=== PATIENT | female | born 1985 | race Caucasian/White ===

== ENCOUNTER → 2022-04-12 | Day surgery (SDC) | payer OTHER ==
[~2022-04-12] VITALS: Ht 157.5 cm; Wt 72.6 kg
[~2022-04-12] MED LIST: ADVIL200 M1 PO; BENADRYL25 MG PO; VITAMIN D21250 MCG PO
[2022-04-12 09:10] LABS: HCG (URINE) SCREEN NEGATIVE (NEGATIVE)
[2022-04-12 09:54] LABS: HCT 41.4 % (37.0-47.0); HGB 13.4 g/dl (12.5-16.0); MCH 27.1 pg (25.0-31.0); MCHC 32.4 g/dL (32.0-36.0); MCV 83.8 fL (78.0-100.0); MPV 11.4 fL (6.0-9.5); RBC 4.94 M/uL (4.20-5.40); RDW 18.5 % (11.5-14.0); WBC 5.6 K/uL (4.0-10.5)
[2022-04-12 10:09] LABS: ALBUMIN 3.6 g/dL (3.4-5.0); BILIRUBIN - TOTAL 1.4 mg/dL (0.2-1.0); BUN/CREAT RATIO (CALC) 7.5 RATIO; CREATININE 0.8 mg/dL (0.51-0.95); GLOBULIN (CALCULATION) 3.3 g/dL; POTASSIUM 3.9 mmol/L (3.5-5.1); TOTAL PROTEIN 6.9 g/dL (6.4-8.2)
== END | disposition home or self-care (01) ==
LOC: FAS 08:30
PROVIDERS: Surgery
DX: K21.00 Gastro-esophageal reflux disease with esophagitis, without bleeding (principal); K29.50 Unspecified chronic gastritis without bleeding; K44.9 Diaphragmatic hernia without obstruction or gangrene; R19.7 Diarrhea, unspecified; D50.0 Iron deficiency anemia secondary to blood loss (chronic); E06.3 Autoimmune thyroiditis; Z20.822 Contact with and (suspected) exposure to COVID-19; Z88.2 Allergy status to sulfonamides
CPT/HCPCS: 36415; 80053; 84703; J2704; U0002